=== PATIENT | female | born 1980 | race Two or more races ===

== ENCOUNTER 2017-12-26 12:31 | Emergency (ER) | payer MEDICAID ==
[~2017-12-26] VITALS: Ht 167.6 cm; Wt 85.1 kg
[2017-12-26 12:45] VITALS: BP 146/49
== END 2017-12-26 13:30 | disposition home or self-care (01) ==
LOC: ED 12:31
DX: H00.024 Hordeolum internum left upper eyelid (principal)

== ENCOUNTER 2018-04-25 04:18 | Emergency (ER) | payer MEDICAID ==
[~2018-04-25] VITALS: Ht 167.6 cm; Wt 88.0 kg
[2018-04-25 04:28] VITALS: Ht 167.6 cm; Wt 88.0 kg
[2018-04-25 06:12] VITALS: BP 147/85
== END 2018-04-25 06:12 | disposition home or self-care (01) ==
LOC: ED 04:18
DX: J06.9 Acute upper respiratory infection, unspecified (principal); M79.602 Pain in left arm
CPT/HCPCS: 85378; Q0092

== ENCOUNTER 2019-11-07 07:37 | Emergency (ER) | payer MEDICAID ==
[~2019-11-07] VITALS: Ht 167.6 cm; Wt 89.0 kg
[2019-11-07 07:46] VITALS: Ht 167.6 cm; Wt 89.0 kg
[2019-11-07 11:27] VITALS: BP 122/71
== END 2019-11-07 11:27 | disposition home or self-care (01) ==
LOC: ED 07:37
DX: J02.9 Acute pharyngitis, unspecified (principal)
CPT/HCPCS: 87804; Q0092

== ENCOUNTER 2020-09-17 18:53 | Emergency (ER) | payer MEDICAID ==
[~2020-09-17] VITALS: Ht 167.6 cm; Wt 88.5 kg
[2020-09-17 19:11] VITALS: Ht 167.6 cm; Wt 88.5 kg
[2020-09-17 20:33] VITALS: BP 156/88
== END 2020-09-17 20:33 | disposition home or self-care (01) ==
LOC: ED 18:53
DX: S61.214A Laceration without foreign body of right ring finger without damage to nail, initial encounter (principal); S61.216A Laceration without foreign body of right little finger without damage to nail, initial encounter; W25.XXXA Contact with sharp glass, initial encounter; Y93.89 Activity, other specified; Y92.89 Other specified places as the place of occurrence of the external cause; Y99.8 Other external cause status
CPT/HCPCS: 90715; J2001; Q0092